=== PATIENT | female | born 1980 ===

== ENCOUNTER 2022-06-30 03:47 | Emergency (ER) | payer SELFPAY ==
[2022-06-30] MEDS ORDERED: Triple Antibiotic Oint 1 GM Packet ONE ×2 (04:16→04:25)
== END 2022-06-30 04:29 | disposition home or self-care (01) ==
LOC: CSHERS 03:47
DX: S01.551A Open bite of lip, initial encounter (principal); W50.3XXA Accidental bite by another person, initial encounter
CPT/HCPCS: 99283